=== PATIENT | male | born 1995 | race American Indian/Alaskan Native ===

== ENCOUNTER 2018-12-22 01:49 | Emergency (ER) | payer OTHER ==
[2018-12-22 01:55] VITALS: BP 139/89
[2018-12-22] MEDS ORDERED: BOOSTRIX IM ONE (02:47)
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
== END 2018-12-22 03:25 | disposition home or self-care (01) ==
LOC: ED 01:49
DX: S09.90XA Unspecified injury of head, initial encounter (principal); S01.91XA Laceration without foreign body of unspecified part of head, initial encounter; W22.8XXA Striking against or struck by other objects, initial encounter; Y93.89 Activity, other specified; Y92.89 Other specified places as the place of occurrence of the external cause; Y99.8 Other external cause status
CPT/HCPCS: 90471; 90715; 99282

== ENCOUNTER 2019-02-03 16:21 | Emergency (ER) | payer OTHER ==
--- NOTE | 2019-02-03 16:30 | Emergency Department Report ---
Blank Doc - Documentation Documentation: This is a 23-year-old male that presents with rectal pain and staple removal. Patient stated was told he has hemorrohids.. Denies any bleeding or any other complaints. This initial assessment/diagnostic orders/clinical plan/treatment(s) is/are subject to change based on patient's health status, clinical progression and re- assessment by fellow clinical providers in the ED. Further treatment and workup at subsequent clinical providers discretion. Patient/guardians urged not to elope from the ED as their condition may be serious if not clinically assessed and managed. Initial orders include: 1- Patient sent to [facility] for further evaluation and treatment
[2019-02-03 16:32] VITALS: BP 116/65
[2019-02-03] MEDS ORDERED: TORADOL IM ONE (17:28)
--- NOTE | 2019-02-03 17:28 | Emergency Department Report ---
ED Male HPI - General Chief complaint: Rectal Pain Stated complaint: POSS HEMROIDS/SUSAN IN HEAD Time Seen by Provider: 02/03/19 16:28 Source: patient Mode of arrival: Ambulatory Limitations: No Limitations - History of Present Illness Initial comments: 23-year-old male resents to the ED complaining of rectal pain that started yesterday. Patient states that he had to strain with his bowel movement. Patient states that yesterday stools were very high and he states he has not a bowel movement today which was a little softer. Patient states that pain is aggravated by sitting down. Patient denies any blood in the stool, diarrhea, abdominal pain, pelvic pain - Related Data Previous Rx's Medication Instructions Recorded Last Taken Type Ketorolac [Toradol] 10 mg PO Q6H PRN #14 tablet 12/22/18 Unknown Rx Docusate Sodium [Colace] 100 mg PO BID PRN #30 capsule 02/03/19 Unknown Rx Hydrocortisone [Anusol-Hc] 30 gm RC BID 10 Days #1 cream..g. 02/03/19 Unknown Rx Ibuprofen [Motrin] 800 mg PO Q8HR #30 tablet 02/03/19 Unknown Rx Phenylephrine HCl/[place]um[place] Butter 1 each RC DAILY 7 Days supp.rect 02/03/19 Unknown Rx [Preparation H Suppository] Allergies Allergy/AdvReac Type Severity Reaction Status Date / Time No Known Allergies Allergy Unverified 12/22/18 01:49 ED Review of Systems ROS: Stated complaint: POSS HEMROIDS/SUSAN IN HEAD Other details as noted in HPI Comment: All other systems reviewed and negative ED Past Medical Hx - Past Medical History Previous Medical History?: No - Surgical History Past Surgical History?: No - Social History Smoking Status: Current Every Day Smoker Substance Use Type: None - Medications Home Medications: Home Medications Medication Instructions Recorded Confirmed Last Taken Type Ketorolac [Toradol] 10 mg PO Q6H PRN #14 tablet 12/22/18 Unknown Rx Docusate Sodium [Colace] 100 mg PO BID PRN #30 capsule 02/03/19 Unknown Rx Hydrocortisone [Anusol-Hc] 30 gm RC BID 10 Days #1 cream..g. 02/03/19 Unknown Rx Ibuprofen [Motrin] 800 mg PO Q8HR #30 tablet 02/03/19 Unknown Rx Phenylephrine HCl/[place] Butter 1 each RC DAILY 7 Days supp.rect 02/03/19 Unknown Rx [Preparation H Suppository] ED Physical Exam - General Limitations: No Limitations General appearance: alert, in no apparent distress - Head Head exam: Present: atraumatic, normocephalic - Eye Eye exam: Present: normal appearance - ENT ENT exam: Present: mucous membranes moist - Neck Neck exam: Present: normal inspection - Respiratory Respiratory exam: Present: normal lung sounds bilaterally. Absent: respiratory distress - Cardiovascular Cardiovascular Exam: Present: regular rate, normal rhythm. Absent: systolic murmur, diastolic murmur, rubs, gallop - GI/Abdominal GI/Abdominal exam: Present: soft, normal bowel sounds. Absent: distended, tenderness - Rectal Rectal exam: Present: deferred, normal rectal tone, hemorrhoids, tenderness - Extremities Exam Extremities exam: Present: normal inspection - Back Exam Back exam: Present: normal inspection - Neurological Exam Neurological exam: Present: alert, oriented X3, normal gait - Psychiatric Psychiatric exam: Present: normal affect, normal mood - Skin Skin exam: Present: warm, dry, intact, normal color. Absent: rash ED Course Vital Signs 02/03/19 16:30 Temperature 98.5 F Pulse Rate 68 Respiratory 18 Rate Blood Pressure 116/65 O2 Sat by Pulse 99 Oximetry ED Medical Decision Making - Medical Decision Making 23-year-old male presents with external hemorrhoids. Upon examination there is no bleeding or prolapse of the head night. Discussed with patient suppositories to help with the swelling and pain. Discussed pain relief with pain medication as well. Discussed high-fiber diet with the patient. Discussed the patient to follow-up with neurology/GI symptoms on result. Discussed with him if any worsening symptoms to return to ED Critical care attestation.: If time is entered above; I have spent that time in minutes in the direct care of this critically ill patient, excluding procedure time. ED Disposition Clinical Impression: Hemorrhoids without complication Disposition: DC-01 TO HOME OR SELFCARE Is pt being admited?: No Does the pt Need Aspirin: No Condition: Stable Instructions: Hemorrhoidectomy (ED), Hemorrhoids (ED), High Fiber Diet (ED) Additional Instructions: Make sure to follow up with the primary care physician as discussed. Take all your medications as you've been prescribed. If you have any worsening symptoms or develop new symptoms please return to ED immediately. Prescriptions: Hydrocortisone [Anusol-Hc] 30 gm RC BID 10 Days #1 cream..g. Docusate Sodium [Colace] 100 mg PO BID PRN #30 capsule PRN Reason: Constipation Ibuprofen [Motrin] 800 mg PO Q8HR #30 tablet Phenylephrine HCl/Rumsey Butter [Preparation H Suppository] 1 each RC DAILY 7 Days supp.rect Referrals: PRIMARY CARE, [Primary Care Provider] - 3-[address] [facility] [Provider Group] - 3-5 Days [facility] [Provider Group] - 3-5 Days Forms: Accompanied Note, Work/School Release Form(ED) Time of Disposition: 17:32
== END 2019-02-03 17:50 | disposition home or self-care (01) ==
LOC: ED 16:21
DX: K64.4 Residual hemorrhoidal skin tags (principal)
CPT/HCPCS: 96372; 99282; J1885

== ENCOUNTER 2021-09-16 08:05 | Emergency (ER) | payer OTHER ==
[2021-09-16 08:13] VITALS: BP 144/105
[2021-09-16] MEDS ORDERED: LIDOCAINE-MPF (1%) 10 MG/1 ML VIAL 5 ML INFILTRATI ONE (09:03)
--- NOTE | 2021-09-16 09:07 | Emergency Department Report ---
ED General Adult HPI - General Chief complaint: Urogenital-Male Stated complaint: scrotal pain Time Seen by Provider: 09/16/21 08:22 Source: patient Mode of arrival: Ambulatory Limitations: No Limitations - History of Present Illness Initial comments: 26-year-old -[place] male patient presents with complaints of penile discharge and dysuria starting yesterday. He admits to recent unprotected intercourse. He denies any penile lesions, testicular pain/swelling, fever/chills/sweats, abdominal pain, or swollen painful joints. No other past medical history per patient. -: Sudden Severity scale (0 -10): 0 - Related Data Previous Rx's Medication Instructions Recorded Last Taken Type Ketorolac [Toradol] 10 mg PO Q6H PRN #14 tablet 12/22/18 Unknown Rx Docusate Sodium [Colace] 100 mg PO BID PRN #30 capsule 02/03/19 Unknown Rx Hydrocortisone [Anusol-Hc] 30 gm RC BID 10 Days #1 cream..g. 02/03/19 Unknown Rx Ibuprofen [Motrin] 800 mg PO Q8HR #30 tablet 02/03/19 Unknown Rx Phenylephrine HCl/[place] Butter 1 each RC DAILY 7 Days supp.rect 02/03/19 Unknown Rx [Preparation H Suppository] Doxycycline Monohydrate 100 mg PO BID 7 Days #14 capsule 09/16/21 Unknown Rx [Doxycycline Monohydrate CAP] metroNIDAZOLE [Flagyl TAB] 2,000 mg PO ONCE 1 Days #4 tab 09/16/21 Unknown Rx Allergies Allergy/AdvReac Type Severity Reaction Status Date / Time No Known Allergies Allergy Unverified 12/22/18 01:49 ED Review of Systems ROS: Stated complaint: scrotal pain Other details as noted in HPI Constitutional: denies: chills, diaphoresis, fever, malaise, weakness Respiratory: denies: cough Gastrointestinal: denies: abdominal pain Genitourinary: dysuria, discharge. denies: frequency, hematuria, testicular pain, testicular mass Skin: denies: rash, lesions, change in color Hematological/Lymphatic: denies: swollen glands ED Past Medical Hx - Social History Smoking Status: Current Every Day Smoker Substance Use Type: None - Medications Home Medications: Home Medications Medication Instructions Recorded Confirmed Last Taken Type Ketorolac [Toradol] 10 mg PO Q6H PRN #14 tablet 12/22/18 Unknown Rx Docusate Sodium [Colace] 100 mg PO BID PRN #30 capsule 02/03/19 Unknown Rx Hydrocortisone [Anusol-Hc] 30 gm RC BID 10 Days #1 cream..g. 02/03/19 Unknown Rx Ibuprofen [Motrin] 800 mg PO Q8HR #30 tablet 02/03/19 Unknown Rx Phenylephrine HCl/[place] Butter 1 each RC DAILY 7 Days supp.rect 02/03/19 Unknown Rx [Preparation H Suppository] Doxycycline Monohydrate 100 mg PO BID 7 Days #14 capsule 09/16/21 Unknown Rx [Doxycycline Monohydrate CAP] metroNIDAZOLE [Flagyl TAB] 2,000 mg PO ONCE 1 Days #4 tab 09/16/21 Unknown Rx ED Physical Exam - General Limitations: No Limitations General appearance: alert, in no apparent distress - Head Head exam: Present: atraumatic, normocephalic - Eye Eye exam: Present: normal appearance - Respiratory Respiratory exam: Absent: respiratory distress - Cardiovascular Cardiovascular Exam: Present: regular rate - External exam: Present: other (Deferred) - Neurological Exam Neurological exam: Present: alert, oriented X3 - Psychiatric Psychiatric exam: Present: normal affect, normal mood - Skin Skin exam: Present: warm, dry, intact, normal color. Absent: rash ED Course Vital Signs 09/16/21 08:11 Temperature 98.3 F Pulse Rate 72 Respiratory 14 Rate Blood Pressure 144/105 [Right] O2 Sat by Pulse 99 Oximetry ED Medical Decision Making - Medical Decision Making 26-year-old -[place] male patient presents with complaints of penile discharge and dysuria starting yesterday. He admits to recent unprotected intercourse. He denies any penile lesions, testicular pain/swelling, fever/chills/sweats, abdominal pain, or swollen painful joints. No other past medical history per patient. Empiric treatment given for gonorrhea with Rocephin Patient will discharge home with Flagyl and doxycycline. I recommend he follows up with the health department or his primary care provider for further STI testing. Patient also informed to follow-up for recheck of his blood pressure with his primary care doctor within 2 to 3 days. He is otherwise well-appearing and he is stable for discharge home. Discussed in detail signs and symptoms that should prompt immediate return to the ED with patient who verbalizes understanding. Critical care attestation.: If time is entered above; I have spent that time in minutes in the direct care of this critically ill patient, excluding procedure time. ED Disposition Clinical Impression: Penile discharge, Elevated blood pressure reading without diagnosis of hypertension Disposition: 01 HOME / SELF CARE / HOMELESS Is pt being admited?: No Condition: Stable Instructions: Urethritis, Adult, Hypertension, Adult, [id number], Safe Sex Prescriptions: Doxycycline Monohydrate [Doxycycline Monohydrate CAP] 100 mg PO BID 7 Days #14 capsule metroNIDAZOLE [Flagyl TAB] 2,000 mg PO ONCE 1 Days #4 tab Referrals: [facility] [Provider Group] - 3-5 Days [facility] [Outside] - 3-5 Days
== END 2021-09-16 10:05 | disposition home or self-care (01) ==
LOC: ED 08:05
DX: R36.9 Urethral discharge, unspecified (principal); R03.0 Elevated blood-pressure reading, without diagnosis of hypertension; F17.200 Nicotine dependence, unspecified, uncomplicated
CPT/HCPCS: 96372; 99281; J0696; J3490